=== PATIENT | female | born 1980 | race Caucasian/White ===

== ENCOUNTER → 2017-10-06 | Outpatient (CLI) | payer OTHER | END | disposition home or self-care (01) | LOC: CFH 07:17 | PROVIDERS: ATTEND Obstetrics & Gynecology | DX: K81.9 Cholecystitis, unspecified (principal); R10.811 Right upper quadrant abdominal tenderness | CPT/HCPCS: 76705 ==

== ENCOUNTER 2018-04-24 01:30 | Inpatient (IN) | payer OTHER ==
[~2018-04-24] VITALS: Ht 170.2 cm; Wt 69.1 kg
[2018-04-24] MEDS ORDERED: LIDOCAINE 1%, 20ML ONE (03:20)
[2018-04-24] MEDS ORDERED: NEWBORN KIT ONE (03:20)
[2018-04-24] MEDS ORDERED: OXYTOCIN 30U/ 0.9% NaCL 500ML 500 ML ONE (03:20)
[2018-04-24] MEDS ORDERED: MISOPROSTOL 200 MCG TABLET ONE (03:20)
[2018-04-24 03:35] VITALS: BP 118/84
[2018-04-24] MEDS ORDERED: D5%-LACTATED RINGERS 1,000 ML IV SCH (03:35)
[2018-04-24] MEDS ORDERED: LACTATED RINGERS 1,000 ML IV SCH (03:35)
[2018-04-24] MEDS ORDERED: OXYTOCIN 30U/ 0.9% NaCL 500ML 500 ML IV ONE (03:35)
[2018-04-24] MEDS ORDERED: TERBUTALINE 1 MG/ML, 1ML IVPush PRN (04:00)
[2018-04-24] MEDS ORDERED: ONDANSETRON 2MG/ML, 2ML IVPush PRN (04:00)
[2018-04-24] MEDS ORDERED: FENTANYL PF 100 MCG/2ML IVPush PRN (04:00)
[2018-04-24] MEDS ORDERED: FENTANYL PF 100 MCG/2ML IV PRN (04:00)
[2018-04-24] MEDS ORDERED: CALCIUM CARBONATE 500 MG TAB.CHEW PO PRN (04:00)
[2018-04-24] MEDS ORDERED: ONDANSETRON 2MG/ML, 2ML ONE (04:15)
[2018-04-24] MEDS ORDERED: FENTANYL PF 100 MCG/2ML ONE (04:23)
[2018-04-24 04:33] LABS: BASOPHILS # (AUTO) 0.03 x10^3/uL (0-0.1); BASOPHILS % (AUTO) 0 % (0-1); EOSINOPHILS # (AUTO) 0.02 x10^3/uL (0-0.4); EOSINOPHILS % (AUTO) 0 % (1-7); LYMPHOCYTES # (AUTO) 2.02 x10^3/uL (1-3.4); LYMPHOCYTES % (AUTO) 14 % (22-44); MD NO; MEAN CORPUSCULAR HEMOGLOBIN 32.1 pg (27.0-34.8); MEAN CORPUSCULAR HGB CONC 34.2 g/dL (32.4-35.8); MEAN CORPUSCULAR VOLUME 93.9 fL (80-100); MEAN PLATELET VOLUME 7.7 fL (7.4-10.4); MONOCYTES # (AUTO) 0.62 x10^3/uL (0.2-0.8); MONOCYTES % (AUTO) 4 % (2-9); NEUTROPHILS # (AUTO) 11.96 x10^3/uL (1.8-6.8); NEUTROPHILS % (AUTO) 82 % (42-75); PLATELET COUNT 286 x10^3/uL (130-400); RED BLOOD COUNT 4.08 x10^6/uL (3.82-5.3); RED CELL DISTRIBUTION WIDTH 13.8 % (9.6-15.2)
[2018-04-24] MEDS: OXYTOCIN 30U/ 0.9% NaCL 500ML 500 ML IV SCH ×2 (05:24→15:24)
[2018-04-24] MEDS ORDERED: MISOPROSTOL 200 MCG TABLET PR PRN ×2 (05:30→06:00)
[2018-04-24] MEDS ORDERED: ONDANSETRON 2MG/ML, 2ML IV PRN (05:30)
[2018-04-24] MEDS: OXYcodone/APAP 5/325MG TABLET PO PRN ×3 (06:52→18:54)
[2018-04-24] MEDS: IBUPROFEN 600 MG TABLET PO PRN ×3 (06:53→18:54)
[2018-04-24 07:50] VITALS: BP 105/68
[2018-04-24] MEDS: PRENATAL VIT/IRON/FA 1 EACH TABLET PO SCH (08:11)
[2018-04-24 12:30] VITALS: BP 107/70
[2018-04-24] MEDS: DOCUSATE 100 MG CAPSULE PO PRN (12:53)
[2018-04-24 13:04] LABS: BASOPHILS # (AUTO) 0.05 x10^3/uL (0-0.1); BASOPHILS % (AUTO) 0 % (0-1); EOSINOPHILS # (AUTO) 0.01 x10^3/uL (0-0.4); EOSINOPHILS % (AUTO) 0 % (1-7); LYMPHOCYTES # (AUTO) 2.22 x10^3/uL (1-3.4); LYMPHOCYTES % (AUTO) 15 % (22-44); MD NO; MEAN CORPUSCULAR HEMOGLOBIN 32.7 pg (27.0-34.8); MEAN CORPUSCULAR HGB CONC 35.2 g/dL (32.4-35.8); MEAN CORPUSCULAR VOLUME 92.9 fL (80-100); MEAN PLATELET VOLUME 7.4 fL (7.4-10.4); MONOCYTES # (AUTO) 0.69 x10^3/uL (0.2-0.8); MONOCYTES % (AUTO) 5 % (2-9); NEUTROPHILS # (AUTO) 11.45 x10^3/uL (1.8-6.8); NEUTROPHILS % (AUTO) 79 % (42-75); PLATELET COUNT 280 x10^3/uL (130-400); RED BLOOD COUNT 4.11 x10^6/uL (3.82-5.3); RED CELL DISTRIBUTION WIDTH 13.5 % (9.6-15.2)
[2018-04-24 16:00] VITALS: BP 110/72
[2018-04-24 19:40] VITALS: BP 103/62
[2018-04-25 00:30] VITALS: BP 110/76
[2018-04-25] MEDS: IBUPROFEN 600 MG TABLET PO PRN ×3 (01:18→14:09)
[2018-04-25] MEDS: OXYcodone/APAP 5/325MG TABLET PO PRN ×3 (01:18→14:09)
[2018-04-25] MEDS: OXYTOCIN 30U/ 0.9% NaCL 500ML 500 ML IV SCH (01:24)
[2018-04-25 04:30] VITALS: BP 113/66
[2018-04-25] MEDS: PRENATAL VIT/IRON/FA 1 EACH TABLET PO SCH (07:52)
[2018-04-25] MEDS: DOCUSATE 100 MG CAPSULE PO PRN (07:52)
[2018-04-25 08:22] VITALS: BP 94/57
== END 2018-04-25 14:55 | disposition home or self-care (01) | DRG 807 ==
LOC: LDOP 01:30 → LDIP 03:20 → 2NW 06:43
PROVIDERS: ADMIT Obstetrics & Gynecology; ATTEND Obstetrics & Gynecology
PROC: 10E0XZZ Delivery of Products of Conception, External Approach (ICD-10-PCS; principal; 2018-04-24)
PROC: 0HQ9XZZ Repair Perineum Skin, External Approach (ICD-10-PCS; 2018-04-24)
PROC: 10907ZC Drainage of Amniotic Fluid, Therapeutic from Products of Conception, Via Natural or Artificial Opening (ICD-10-PCS; 2018-04-24)
DX: O77.0 Labor and delivery complicated by meconium in amniotic fluid (principal); Z37.0 Single live birth; O75.89 Other specified complications of labor and delivery; M41.9 Scoliosis, unspecified; Z3A.39 39 weeks gestation of pregnancy; O70.0 First degree perineal laceration during delivery
CPT/HCPCS: 36415; 82803; 85025; 86850; 86900; G0378; J2405; J3010; J2590; J7120